=== PATIENT | female | born 1975 | race Caucasian/White ===

== ENCOUNTER → 2025-01-30 | Outpatient (CLI) | payer BC | END | disposition home or self-care (01) | LOC: LABPAT 12:09 | PROVIDERS: ATTEND Orthopaedic Surgery Orthopaedic Surgery of the Spine | DX: Z22.322 Carrier or suspected carrier of Methicillin resistant Staphylococcus aureus (principal) | CPT/HCPCS: 87070 ==

== ENCOUNTER 2025-02-05 07:11 | Day surgery (SDC) | payer BC ==
[~2025-02-05 07:11] MED LIST: DEXAMETHASONE SOD PHOSPHATE 4 MG/ML 1 ML VIAL IV ONE
[2025-02-05] MEDS: ceFAZolin 1,000 MG in SODIUM CHLORIDE 0.9% 1,000 ML IRRIGATION ONE (07:25)
[2025-02-05] MEDS: ceFAZolin 2 GM in DEXTROSE 5% IN WATER 50 ML IVPB PRN (07:25)
[2025-02-05] MEDS: IV FLUID CONTINUATION 1,000 ML IV ONE (07:47)
[2025-02-05 08:06] LABS: Glucose,Whole Blood 125 mg/dL (70-110)
[2025-02-05] MEDS: ONDANSETRON 4 MG/2 ML VIAL IVP ONE (08:08)
[2025-02-05] MEDS: LACTATED RINGERS 1,000 ML IV SCH (08:09)
[2025-02-05] MEDS ORDERED: LIDOCAINE 1% INJ 10MG/ML (20 ML MDV) ONE (08:21)
[2025-02-05] MEDS ORDERED: PHENYLEPHRINE 10 MG/ML VIAL ONE (08:21)
[2025-02-05] MEDS ORDERED: ePHEDrine 50 MG/ML 1 ML VIAL ONE (08:21)
[2025-02-05] MEDS ORDERED: fentaNYL (PF) 50 MCG/ML 2 ML AMP ONE (08:21)
[2025-02-05] MEDS ORDERED: PROPOFOL 10 MG/ML 20 ML VIAL IV ONE (08:21)
[2025-02-05] MEDS ORDERED: SUCCINYLCHOLINE CHLORIDE 200 MG/10 ML VIAL IV ONE (08:21)
[2025-02-05] MEDS ORDERED: MIDAZOLAM 2 MG/2 ML VIAL ONE (08:21)
[2025-02-05] MEDS: THROMBIN (BOVINE) 5,000 UNIT VIAL MISCELLANE ONE (09:03)
[2025-02-05] MEDS: LIDOCAINE 2%-EPI 1:100,000 20 ML VIAL SQ ONE (09:03)
[2025-02-05] MEDS: BUPIVACAINE (PF) 0.25% 30 ML VIAL SQ ONE (09:03)
[2025-02-05] MEDS: methylPREDNISolone ACETATE 40 MG/ML 1 ML VIAL INJ ONE ×2 (09:21→09:32)
--- NOTE | 2025-02-05 09:26 | FL ---
EXAMINATION TYPE: FL guidance operating room, XR lumbar spine 2 or 3V DATE OF EXAM: 02/05/2025 FLUOROSCOPY Herinated nucleus pulposus lumbar discectomy, Dr. Martínez Fl time- 0.4305 KRUPA, AT 2 images are submitted. [facility], Workstation: [email or web address], 02/05/2025 9:24 AM
[2025-02-05] MEDS ORDERED: HYDROmorphone 0.5 MG/0.5 ML SYRINGE IVP PRN (09:56)
[2025-02-05] MEDS ORDERED: HYDROmorphone 1 MG/ML 1 ML SYRINGE IVP PRN (09:56)
[2025-02-05] MEDS ORDERED: BENZOCAINE/MENTHOL LOZENG 1 EACH LOZENGE MUCOUS MEM PRN (09:56)
[2025-02-05] MEDS ORDERED: ACETAMINOPHEN TAB 325 MG TAB PO PRN (09:57)
[2025-02-05] MEDS ORDERED: ONDANSETRON 4 MG/2 ML VIAL IVP PRN (09:57)
[2025-02-05] MEDS ORDERED: CYCLOBENZAPRINE 10 MG TAB PO PRN (09:57)
[2025-02-05] MEDS ORDERED: TYLENOL PO PRN (09:58)
[2025-02-05] MEDS ORDERED: SODIUM CHLORIDE 0.9% 1,000 ML IV SCH (10:00)
--- NOTE | 2025-02-05 10:07 | P.OP ---
Date of Procedure: 02/05/25 Preoperative Diagnosis: Herniated nucleus pulposus L5-S1 with large extruded fragment, left lower extremity radiculopathy, left lower extremity weakness, stenosis due to herniated disc Postoperative Diagnosis: Same Anesthesia: GETA Pathology: none sent Condition: stable Disposition: PACU Description of Procedure: BRIEF OPERATIVE NOTE Preoperative Diagnosis:Herniated nucleus pulposus L5-S1 with large extruded fragment, left lower extremity radiculopathy, left lower extremity weakness, stenosis due to herniated disc Postoperative Diagnosis:Herniated nucleus pulposus L5-S1 with large extruded fragment, left lower extremity radiculopathy, left lower extremity weakness, stenosis due to herniated disc Procedure: Laminectomy and decompression L5-S1 Discectomy for decompression L5-S1 Use of fluoroscopic guidance Surgeon: Dr. Martínez Manager Port: Travis GILBERT who is present throughout the entire the case persistence during positioning, dissection, exposure, visualization, and all crucial elements of the case as well as closure. Anesthesia: General anesthesia Estimated blood loss: Approximately 40 cc Complications: None apparent Components implanted: None Disposition: To recovery room in good stable condition. OPERATIVE INDICATIONS The patient has been having issues in their lower back and lower extremities. She is having severe pain particularly at her left lower extremity down the back of her leg. She is having weakness in her legs well. She was found to have a disc herniation at L5-S1 with a massive extruded disc causing severe impingement and stenosis of the left neural foramen and the traversing nerve. This correlated well with her back and lower extremity symptoms. The patient has been through conservative treatment. She is not having any benefit despite aggressive conservative care. We felt that surgery would give her very good chance of improving her symptoms significantly. We discussed various treatment options including surgery, and the patient wishes to proceed with surgery We discussed the risk, patient's alternatives and benefits of surgery including but not limited to, risk of bleeding risk of infection, risk of need for further surgery, risk of decreased, loss of motion, loss of function, nerve damage, paralysis, heart attack, blindness and . OPERATIVE SUMMARY After discussing all the risks, patient alternatives and benefits at length, the patient elected to proceed with surgical intervention, signed informed consent, and presented for their procedure. The patient was seen and examined in the preoperative holding area and the surgical site was marked. The patient was given antibiotics and brought to the operating room. The patient was sedated and intubated by anesthesia in standard fashion. The patient was positioned on to the operating room table in a prone position on the appropriate frame which was well-padded and well molded. We were careful to pad any bony prominences and pressure points. We were careful to maintain the patient's cervical spine and good neutral alignment and position throughout. The patient was prepped and draped in a normal standard fashion. An appropriate timeout and keystone protocol performed. We were able to proceed with the surgery. Fluoroscopy was utilized to establish the appropriate level. The local wound area was infiltrated with local anesthetic at L5-S1. An incision was made at the midline longitudinally over the appropriate levels at L5-S1 . Dissection was taken down subcutaneously on the left to the level of the fascia which was split midline. Dissection was taken over the lamina. Intraoperative fluoroscopy was taken which showed a marker at the appropriate level at L5-S1. With the appropriate level positively confirmed, we were able to proceed with laminectomy. The wound was copiously irrigated and suctioned dry as had been done periodically throughout the case. I performed a laminectomy with a combination of curettes and a high-speed bur and Kerrison rongeurs. A small medial facetectomy was performed again further access. A partial foraminotomy was also performed. Portions of the ligamentum flavum were taken down to expose the dura and traversing nerve root. I was able to mobilize the traversing nerve root and gain access to the disc space. Note was made of obvious compression from the disc. There was a very large extruded disc herniation in multiple fragments which was removed giving significant initial relief and decompression. Protecting the soft tissue structures, a small annulotomy was established. I was able to perform discectomy and remove any extruded disc fragments and any loose fragments from within the disc itself. There is some disc desiccation noted. I tried to preserve the disc annulus that appeared stable. There were no further extruded fragments noted. There is no evidence of dural tear or leak. Good hemostasis maintained. The wound was copi ously irrigated and suctioned dry. Good decompression and discectomy was noted. We were able to proceed with closure. The fascia was closed for a watertight closure. The subcuticular tissue was closed with absorbable suture. The wound was cleaned and dried and dressed with the appropriate dressing. The drapes were broken down. The patient was gently rolled back onto their hospital bed being careful to maintain their cervical spine and good neutral alignment and position. They were woken up by anesthesia, extubated, and brought to the recovery room in good stable condition. The patient will be admitted to the hospital for observation and for appropriate postoperative care, medical management and monitoring. We will continue to follow them closely about the postoperative course.
[2025-02-05 10:08] VITALS: TEMP 97.5
[2025-02-05] MEDS: HYDROmorphone 0.5 MG/0.5 ML SYRINGE IVP PRN (10:24)
[2025-02-05 12:03] VITALS: RESP 16
[2025-02-05] MEDS: HYDROcodone/APAP 5-325MG 1 EACH TAB PO PRN (12:22)
[2025-02-05 12:49] VITALS: BP 122/80; PULSE 70
[2025-02-05] MEDS ORDERED: ATORVASTATIN 80 MG TAB PO SCH (21:00)
[2025-02-05] MEDS ORDERED: EZETIMIBE 10 MG TAB PO SCH (21:00)
[2025-02-06] MEDS ORDERED: PANTOPRAZOLE 40 MG TABLET PO SCH (07:30)
[2025-02-06] MEDS ORDERED: VITAMIN D PO SCH (09:00)
[2025-02-06] MEDS ORDERED: ESCITALOPRAM 20 MG TAB PO SCH (09:00)
== END 2025-02-05 12:55 | disposition home or self-care (01) ==
LOC: OR 07:11
PROVIDERS: ATTEND Orthopaedic Surgery Orthopaedic Surgery of the Spine
DX: M48.07 Spinal stenosis, lumbosacral region (principal); M51.17 Intervertebral disc disorders with radiculopathy, lumbosacral region; I10 Essential (primary) hypertension; Z87.891 Personal history of nicotine dependence; L98.9 Disorder of the skin and subcutaneous tissue, unspecified; F32.A Depression, unspecified; F41.9 Anxiety disorder, unspecified; K21.9 Gastro-esophageal reflux disease without esophagitis; Z79.899 Other long term (current) drug therapy
CPT/HCPCS: 72100; 63047; J2250; J0330; J0690 ×2; J2405; J2003; J3010; J2704; J1171; J2371; J0665; J1010